=== PATIENT | female | born 1995 | race Caucasian/White ===

== ENCOUNTER → 2018-03-24 11:26 | Outpatient (CLI) | payer MEDICARE, MEDICAID, SELFPAY ==
--- NOTE | 2018-03-24 13:36 | STRESSREP ---
Stress Test Report Date: 03/24/2018 Procedure: Exercise tolerance test Indications: Palpitations; chest pain Consent: Per the patient Procedure: The patient exercised on a Kade protocol for 10 minutes and 30 seconds completing Stage III and 1 minute 30 seconds of Stage IV achieving a peak heart rate of 190 bpm (95 % predicted maximal heart rate) with a peak blood pressure 160/80 mmHg and a peak MET capacity of approximately 12 MET's. The baseline ECG demonstrated normal sinus rhythm. The peak exercise ECG demonstrated no obvious ECG changes. There were no cardiac dysrhythmias pretest, during exercise, or recovery. The functional capacity was considered good. The patient noted left-sided chest discomfort, shortness of breath/dyspnea, and fluttering during exercise with spontaneous resolution in recovery. The examination was discontinued secondary to dyspnea and lightheadedness. Impression: 1. Technically adequate (percent predicted maximal heart rate greater than 85%) exercise tolerance test 2. Peak exercise ECG with no obvious ECG changes 3. No cardiac dysrhythmias during exercise or recovery This note was generated with [employer] software. It may contain incorrect words, spelling, and punctuation that were not noted in checking the note before signing.
== END ==
PROVIDERS: Family Provider Family Medicine; PCP Family Medicine; Visit Provider Internal Medicine Cardiovascular Disease
DX: R07.9 Chest pain, unspecified (principal); R00.2 Palpitations; R00.0 Tachycardia, unspecified
CPT/HCPCS: 93017

== ENCOUNTER 2024-04-08 12:43 | Emergency (ER) | payer MEDICARE, SELFPAY ==
[2024-04-08] VITALS (12 sets, daily range): BP systolic 117–158; BP diastolic 59–104; PULSE 64–82; RESP 15–18; TEMP 36.6–36.7; O2SAT 98–100; BMI 25.7
--- NOTE | 2024-04-08 13:12 | EX.ED.DYSGE1 ---
HPI History of Present Illness Chief Complaint: Shortness of Breath Detail of Chief Complaint: Shortness of breath Informant: patient and parent Onset/Context/Timing Onset: Month(s) (Shortness of breath and chest pain is not present for a month. ) Timing: Continuous and Waxes and wanes Quality: Sharp right parasternal discomfort with pleuritic component radiating throu Current Severity: Mild Maximum Severity: Moderate Worsened by: Movement of her arms, breathing Relieved by: Nothing Associated Symptoms Associated Symptoms: Shortness of breath Narrative Narrative: Patient is a 28-year-old female. She has history of depression. She was sent in to rule out PE. Patient was seen recently i.e. this week at [facility] ER in [place]. She had a troponin less than 6. D-dimer that was 290 with upper end of normal being 500. No imaging was obtained. Change in position does not affect the chest discomfort or shortness of breath. She denies leg pain, swelling discoloration. She denies fever, chills night sweats. She denies upper respiratory like symptoms other than cough for the past month. Cough is nonproductive. She does endorse intolerance to greasy fried foods and states she does not eat any; however, she ate [employer] at noon. There is family history of cholelithiasis. There is no history of renal or ureterolithiasis. 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 Prior similar symptoms: Yes Recent Illness/Hospitalization: [facility] Medical History Sinus tachycardia Eating disorder, unspecified Migraines Borderline personality disorder Tobacco dependence Depression Anxiety Palpitations Home Medications ?Medication ?Instructions ?Recorded ?Last Taken ?Type trazodone 100 mg tablet 100 mg PO QDAY 03/11/18 Unknown History venlafaxine 75 mg capsule,extended 75 mg PO QDAY 03/11/18 Unknown History release 24 hr (Effexor XR) metoprolol succinate 25 mg 25 mg PO DAILY #90 tabs 08/26/18 Unknown Rx tablet,extended release 24 hr (Toprol XL) prednisone 20 mg tablet 60 mg (3 x 20 mg) PO DAILY #15 04/08/24 Unknown Rx TABLETS Allergy/AdvReac Type Severity Reaction Status Date / Time No Known Allergies Allergy Verified 04/08/24 12:43 Family History Grandmother Hypertension Aunt CHF (congestive heart failure) Surgical History History of surgery on arm Social History Smoking Status: Former smoker alcohol intake: current details: occasional substance use type: marijuana ROS ROS ED Constitutional Constitutional ED: Denies chills, fever(s), subjective or sweats Eyes Eyes: Denies blurry vision or change in vision ENT ENT ED: Denies ear pain, rhinorrhea or sore throat Cardiovascular Cardiovascular: Reports chest pain; Denies orthopnea or paroxysmal nocturnal dyspnea Respiratory/Chest Respiratory/Chest: Reports cough and dyspnea; Denies dyspnea on exertion, orthopnea, paroxysmal nocturnal dyspnea or sputum Gastrointestinal Gastrointestinal: Denies abdominal pain, diarrhea, nausea or vomiting Genitourinary Genitourinary ED: Reports urinary frequency; Denies dysuria or hematuria Musculoskeletal Musculoskeletal: Denies back pain or neck pain Integumentary Denies rash Neurologic Neurologic: Denies headache(s) or weakness Endocrine Endocrinology: Denies cold intolerance or heat intolerance Hematologic/Lymphatic Hematologic/Lymphatic: Reports systems reviewed and no addt'l complaints, except as documented EXAM Physical Exam Const Vital Signs: 04/08/24 12:44 04/08/24 13:00 04/08/24 13:43 Temperature 98.1 F Temperature Source Temporal Pulse Rate 82 70 Respiratory Rate 18 Respiratory Effort Normal Non-Labored Respiratory Depth Normal Respiratory Pattern Normal Blood Pressure 151/95 H 135/73 H Blood Pressure Mean 113 93 Pulse Ox 100 99 Oxygen Delivery Method Room Air Room Air Room Air 04/08/24 14:00 04/08/24 15:00 04/08/24 16:00 Temperature Temperature Source Pulse Rate 69 69 70 Respiratory Rate Respiratory Effort Respiratory Depth Respiratory Pattern Blood Pressure 133/66 H 130/59 H 134/70 H Blood Pressure Mean 88 82 91 Pulse Ox 99 98 100 Oxygen Delivery Method Room Air Room Air Room Air 04/08/24 17:00 04/08/24 18:00 04/08/24 19:00 Temperature Temperature Source Pulse Rate 70 70 70 Respiratory Rate Respiratory Effort Respiratory Depth Respiratory Pattern Blood Pressure 144/77 H 117/94 H 126/67 H Blood Pressure Mean 99 101 86 Pulse Ox 98 98 99 Oxygen Delivery Method Room Air Room Air Room Air 04/08/24 20:00 04/08/24 21:00 Temperature Temperature Source Pulse Rate 68 64 Respiratory Rate Respiratory Effort Respiratory Depth Respiratory Pattern Blood Pressure 136/74 H 158/104 H Blood Pressure Mean 94 122 Pulse Ox 98 98 Oxygen Delivery Method Room Air Room Air Positive well nourished and well developed Constitutional Narrative: Vital signs are normal except for elevated blood pressure.. Patient's pulse ox 100%. She is afebrile. General Appearance ED: well developed and NAD; Negative for cyanotic, diaphoretic or pallor HEENT Reports moist mucous membranes HEENT Narrative: Head is atraumatic normocephalic. Ears normal. Nares patent. Posterior versus normal. Eyes PERRL and EOMs intact bilaterally General Eye ED: Negative for pale conjunctiva or scleral icterus Neck no lymphadenopathy, supple and no JVD Chest Wall inspection of chest normal and palpation of chest normal Chest Narrative: There is pain palpation fourth fifth intercostal space right para sternal region. Resp normal respiratory effort and clear to auscultation bilaterally Cardio regular rate, regular rhythm, S1 normal heart sound, S2 normal heart sound and no murmurs GI normal to inspection, nondistended, normoactive bowel sounds and non-distended; Negative for non-tender, hepatosplenomegaly or no masses Palpation: soft and tender RUQ and Randle's sign; Negative for mass Back/Spine no CVA tenderness Extremity normal to inspection Extremity Narrative: There is no asymmetry, swelling, discoloration, leg vein distention, palpable cords or tenderness along the distribution of the deep venous system. Neuro oriented x3 and CN's II-XII intact bilaterally Sensorium / Orientation: alert Psych mental status grossly normal Skin no rashes or lesions noted, no wounds and skin turgor normal General Skin Exam: elasticity normal; Negative for jaundice or pallor MDM MDM MDM Narrative Medical decision making narrative: Patient was seen at [facility] ER. She had a D-dimer which was normal. D-dimer is 290 with upper end of normal at that facility of 500. She had a troponin less than 6. No imaging was obtained. Patient's Wells score is less than 3 and patient is PERC negative. With a normal D-dimer Wells less than 3 and PERC negative there is no concern at this time for pulmonary embolus. This may represent pleurisy versus musculoskeletal pain with patient having right upper quadrant pain intolerance to greasy fried foods this may be due to biliary disease. Since patient had greasy food from [employer] at noon patient was informed that ultrasound is suboptimal unless 1 wait 6 to 8 hours. Records from [facility] were reviewed. Pertinent laboratory results were documented in the HPI narrative and this portion of the EMR. Lab Data Attestation: I reviewed the patient's lab results. Lab results narrative: White count is elevated at 14.0 with slight shift. There is no bandemia. Hepatic profile is unremarkable. Lipase is normal. Labs: Laboratory Results - last 24 hr 04/08/24 13:09 WBC 14.0 H RBC 4.49 Hgb 13.7 Hct 40.0 MCV 89.1 MCH 30.5 MCHC 34.3 RDW Std Deviation 45.0 H RDW Coeff of Ayden 13.9 Plt Count 356 MPV 9.2 Immature Gran % (Auto) 0.600 Neut % (Auto) 81.0 H Lymph % (Auto) 14.8 L Mitchell % (Auto) 2.6 Eos % (Auto) 0.7 Baso % (Auto) 0.3 Absolute Neuts (auto) 11.3 H Absolute Lymphs (auto) 2.06 Nucleated RBC % 0 Total Bilirubin 0.30 Direct Bilirubin 0.12 AST 14 L ALT 15 Alkaline Phosphatase 41 L Total Protein 7.0 Albumin 3.4 Globulin 3.6 Lipase 44 Verbal order was given for nausea and vomiting. Patient was informed that her ultrasound was negative. Radiography Chest X-Ray - ED: 2 View, Read by ED Physician, Normal, Heart, Mediastinum, Bony Structures and No Acute Disease Diagnostic Testing: Clinical Impression(s) from Imaging Studies Chest X-Ray 04/08/24 14:05 IMPRESSION: Normal x-ray examination of the chest. Electronically Signed: Nolan Harvey MD at 14:19 EDT , Gallbladder Ultrasound 04/08/24 15:38 IMPRESSION: No acute findings in the right upper quadrant. Electronically Signed: Ray Post MD at 20:16 EDT , Management Discussion w/another healthcare provider: Building Equipment Inspector (Dr. Chisholm was well was made aware the patient. She will look up her records and arrange for follow-up and blood pressure recheck. She agrees this most likely represents chronic hypertension.) Treatment and Re-Evaluation :: Patient was reexamined at 1535. Patient still having discomfort. The abdominal exam is remarkable for significant tenderness in the right upper quadrant with a clinical Randle sign. Ultrasound was ordered to be performed at 8 PM. appliance repair technician was contacted. Will treat her pain with morphine. Discharge Plan Triage Chief Complaint: Shortness of Breath ED Provider: Eloy Mistry Dx/Rx/DC Orders Clinical Impression: Chest pain, pleuritic, Dyspnea, Intermittent right upper quadrant abdominal pain, First trimester , Elevated blood-pressure reading, without diagnosis of hypertension Instructions: ED Hypertension, To Be Confirmed, ED Pleurisy Prescriptions: New prednisone 20 mg tablet 60 mg PO DAILY Qty: 15 0RF No Action venlafaxine [Effexor XR] 75 mg capsule,extended release 24hr 75 mg PO QDAY trazodone 100 mg tablet 100 mg PO QDAY metoprolol succinate [Toprol XL] 25 mg tablet extended release 24 hr 25 mg PO DAILY Qty: 90 3RF Primary Care Provider: NOT,DEFINED Referrals: Jessica Guerin DO [Med Staff - Active Staff] - 3-5 Days Georgia Velasco DO [Med Staff - Active Staff] - 3-5 Days NOT,DEFINED [Primary Care Provider] - Activity Restrictions/Additional Instructions: You will need to follow-up with the [facility] ATM MANAGER doctors for evaluation of your elevated blood pressure. Print Language: Citizen Of [place] Disposition Disposition: Home, Self Care
[2024-04-08 13:19] LABS: Absolute Lymphocyte Count 2.06 X10^3/uL (0.83-4.51); Absolute Neutrophil Count 11.3 X10^3/uL (2.0-7.7); Basophil# 0.04 X10^3/uL; Basophil% 0.3 % (0-1); Eosinophils% 0.7 % (0-5); Hemoglobin 13.7 g/dL (12.0-15.0); Lymphocyte # 2.06 X10^3/ul (0.83-4.51); Lymphocyte % 14.8 % (19-41); Mean Corp Hgb Conc 34.3 g/dL (32-36); Mean Corpuscular Hgb 30.5 pg (27.0-32.0); Mean Corpuscular Volume 89.1 fL (81-99); Mean Platelet Vol. 9.2 fl (6.2-12.0); Monocyte# 0.36 X10^3/uL; Monocyte% 2.6 % (0-10); NRBC Flagged by Analyzer 0 % (0-5); Neutrophil # 11.31 X10^3/uL (2.7-7.7); Platelet Count 356 K/mm3 (150-450); RBC Distribution Width CV 13.9 % (11.6-14.6); Red Blood Count 4.49 M/mm3 (4.2-5.4)
[2024-04-08 13:33] LABS: AST(SGOT) 14 U/L (15-37); Alanine Aminotransfer ALT/SGPT 15 U/L (13-56); Albumin, Serum 3.4 g/dL (3.2-5.0); Alkaline Phosphatase 41 U/L (45-117); Bilirubin, Direct 0.12 mg/dL (0.00-0.30); Globulin 3.6 g/dL (2.2-4.2); Lipase 44 U/L (13-75)
--- NOTE | 2024-04-08 14:05 | RAD_ITS ---
STUDY: X-RAY CHEST REASON FOR EXAM: Female, 28 years old. Cough, dyspnea, pleuritic pain right TECHNIQUE: PA and lateral views of the chest. COMPARISON: None. FINDINGS: Pectus excavatum deformity. The lungs are clear and expanded. There is no demonstrated pleural abnormality. Normal size heart. Normal mediastinum and radha. Normal visualized pulmonary arteries. Normal visualized aortic arch and descending thoracic aorta. There is a levoscoliosis of the thoracic spine. Normal visualized ribs, clavicles, and shoulders. There is no demonstrated abnormality of the visualized soft tissue structures of the upper abdomen. RAD/Chest PA and Lateral IMPRESSION: Normal x-ray examination of the chest. Electronically Signed: Nolan Harvey MD at 14:19 EDT ,
--- NOTE | 2024-04-08 15:38 | US_ITS ---
EXAM: US ABDOMEN LIMITED, RIGHT UPPER QUADRANT CLINICAL INDICATION: Right upper quadrant pain, Randle sign, intoleranc TECHNIQUE: Real-time ultrasound of the right upper quadrant with image documentation. COMPARISON: No relevant prior studies available. FINDINGS: LIVER: The liver measures 15.5 cm. There is normal echotexture. No intrahepatic biliary ductal dilation. GALLBLADDER: Gallbladder wall measures 2 mm. No shadowing gallstone. No pericholecystic fluid. Negative sonographic Randle''s sign. COMMON BILE DUCT: Common bile duct measures 3 mm. The proximal common bile duct is within normal limits for the patient''s age. PANCREAS: Unremarkable as visualized. No focal abnormality is demonstrated in the pancreas. No pancreatic ductal dilatation. RIGHT KIDNEY: Unremarkable. There is no hydronephrosis. No shadowing calculus. No focal lesion or perinephric collection is demonstrated. Right kidney measures 10.5 x 4.1 x 5.0 cm. US/Gallbladder IMPRESSION: No acute findings in the right upper quadrant. Electronically Signed: Ray Post MD at 20:16 EDT ,
[2024-04-08] MEDS: Morphine 4 MG/ML Syringe 3 MG IV (15:45)
[2024-04-08] MEDS: Ondansetron 4 MG/2 ML Vial IV (15:45)
== END 2024-04-08 21:45 | disposition home or self-care (01) ==
PROVIDERS: Emergency Provider Emergency Medicine; Referring Provider Emergency Medicine; Visit Provider Emergency Medicine
DX: O99.891 Other specified diseases and conditions complicating pregnancy (principal); R03.0 Elevated blood-pressure reading, without diagnosis of hypertension; R10.11 Right upper quadrant pain; R06.00 Dyspnea, unspecified; R07.81 Pleurodynia; Z87.891 Personal history of nicotine dependence; O99.341 Other mental disorders complicating pregnancy, first trimester; F32.A Depression, unspecified; F41.9 Anxiety disorder, unspecified; Z79.899 Other long term (current) drug therapy; Z3A.00 Weeks of gestation of pregnancy not specified
CPT/HCPCS: 71046; 76705; 80076; 83690; 85025; 96374; 96375; 99283; J2405